=== PATIENT | female | born 2000 | race Two or more races ===

== ENCOUNTER 2020-10-09 20:46 | Emergency (ER) | payer MEDICAID ==
[~2020-10-09] VITALS: Ht 152.4 cm; Wt 53.0 kg
[2020-10-09 21:37] LABS: BASOPHILS % 0.2 % (0.0-2.0); HEMATOCRIT. 36.2 % (36.0-48.0); HEMOGLOBIN. 11.9 g/dL (12.0-16.0); LYMPHOCYTES % 16.4 % (20.0-50.0); MEAN CORPUSCULAR HEMOGLOBIN 26.2 pg (28.0-32.0); MEAN CORPUSCULAR VOLUME 80.2 fL (81.0-99.0); MEAN PLATELET VOLUME 8.9 fl (7.4-10.4); MONOCYTES % 8.2 % (2.0-8.0); NEUTROPHILS % 74.2 % (40.0-76.0); PLATELET 261 x1000/uL (130-400); RED BLOOD CELL COUNT 4.52 mill/uL (4.2-5.4)
[2020-10-09 21:40] LABS: CLARITY URINE CLOUDY (CLEAR); COLOR URINE YELLOW (YELLOW); KETONES URINE NEGATIVE (NEGATIVE); LEUKOCYTE ESTERASE URINE 1+ (NEGATIVE); NITRITE URINE NEGATIVE (NEGATIVE); OCCULT BLOOD URINE NEGATIVE (NEGATIVE); PH URINE 5.5 (4.5-8.0); PROTEIN URINE NEGATIVE (NEGATIVE); SPECIFIC GRAVITY URINE 1.023 (1.005-1.030)
[2020-10-09 21:46] LABS: CHLORIDE 107 mEq/L (98-107)
[2020-10-09 22:24] LABS: B-HCG QUANTITATIVE 95417 mIU/mL (<3)
[2020-10-09] MEDS ORDERED: POTASSIUM CHLORIDE 20MEQ TABLET SR PO ONE (23:00)
[2020-10-09 23:21] VITALS: BP 129/71
== END 2020-10-09 23:23 | disposition home or self-care (01) ==
LOC: ER 20:46
DX: O23.31 Infections of other parts of urinary tract in pregnancy, first trimester (principal); Z3A.08 8 weeks gestation of pregnancy
CPT/HCPCS: 36415; 76801; 80053; 81003; 81025; 84702; 85025; 93005; 99285

== ENCOUNTER 2021-01-24 23:20 | Emergency (ER) | payer MEDICAID, OTHER ==
[~2021-01-24] VITALS: Ht 152.4 cm; Wt 56.2 kg
[2021-01-25] MEDS ORDERED: ACETAMINOPHEN 325MG TABLET PO ONE (01:00)
[2021-01-25] MEDS ORDERED: TOPUD PO (01:01)
[2021-01-25 01:35] VITALS: BP 115/68
== END 2021-01-25 01:36 | disposition home or self-care (01) ==
LOC: ER 23:20
DX: S02.5XXA Fracture of tooth (traumatic), initial encounter for closed fracture (principal); K08.89 Other specified disorders of teeth and supporting structures; O99.012 Anemia complicating pregnancy, second trimester; D57.1 Sickle-cell disease without crisis; Z3A.24 24 weeks gestation of pregnancy; X58.XXXA Exposure to other specified factors, initial encounter; Y93.89 Activity, other specified; Y92.018 Other place in single-family (private) house as the place of occurrence of the external cause
CPT/HCPCS: 99282